=== PATIENT | female | born 2000 | race Caucasian/White ===

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

== ENCOUNTER 2021-08-25 14:41 | Emergency (ER) | payer BC, MEDICAID ==
[2021-08-25 14:51] VITALS: BP 128/80; PULSE 99
[2021-08-25] MEDS ORDERED: Ketorolac 30 MG/ML SDV IM ONE (15:12)
== END 2021-08-25 16:53 | disposition home or self-care (01) ==
LOC: JP.ED 14:41
DX: R10.84 Generalized abdominal pain (principal); F17.210 Nicotine dependence, cigarettes, uncomplicated; Z88.0 Allergy status to penicillin; Z79.899 Other long term (current) drug therapy
CPT/HCPCS: 36415; 80053; 80305; 83690; 85025; 85651; 86140; 96372; 99284; J1885

== ENCOUNTER 2022-01-24 20:03 | Emergency (ER) | payer BC, MEDICAID ==
[2022-01-24 20:58] VITALS: BP 109/62; PULSE 88
[2022-01-24 21:45] LABS: ESTIMATED GFR > 60 (>60)
[2022-01-24] MEDS ORDERED: Famotidine 20 MG Tab PO ONE (22:14)
== END 2022-01-24 23:58 | disposition home or self-care (01) ==
LOC: JP.ED 20:03
DX: O99.891 Other specified diseases and conditions complicating pregnancy (principal); R10.12 Left upper quadrant pain; O99.332 Smoking (tobacco) complicating pregnancy, second trimester; Z3A.19 19 weeks gestation of pregnancy; Z88.0 Allergy status to penicillin
CPT/HCPCS: 36415; 80053; 81001; 85025; 86140; 99283; 99284; A9270-GY

== ENCOUNTER 2022-08-11 19:30 | Emergency (ER) | payer BC, MEDICAID ==
[2022-08-11 20:26] VITALS: BP 118/71; PULSE 85
[2022-08-11] MEDS ORDERED: HYDROmorphone 0.5 MG/0.5 ML Syringe IVPUSH ONE (20:51)
[2022-08-11] MEDS: Sodium Chloride 0.9% 1,000 ML IV SCH ×2 (21:01→22:19)
[2022-08-11] MEDS ORDERED: Ondansetron 4 MG/2 ML SDV IVPUSH ONE (21:11)
[2022-08-11 21:16] LABS: ESTIMATED GFR 72 mL/min (>60)
[2022-08-11] MEDS ORDERED: cefTRIAXone 2 GM in Sodium Chloride 0.9% 50 ML IV ONE (21:23)
[2022-08-11] MEDS ORDERED: Sodium Chloride 0.9% 1,000 ML IV SCH (21:30)
== END 2022-08-11 23:35 | disposition home or self-care (01) ==
LOC: JP.ED 19:30
DX: N12 Tubulo-interstitial nephritis, not specified as acute or chronic (principal); E86.0 Dehydration; K21.9 Gastro-esophageal reflux disease without esophagitis; Z88.0 Allergy status to penicillin; Z79.899 Other long term (current) drug therapy
CPT/HCPCS: 36415; 80053; 83605; 85025; 87040; 96361; 96365; 96375; 99283; J0696; J1170; J2405; J7030

== ENCOUNTER 2023-02-08 10:33 | Emergency (ER) | payer MEDICAID ==
[2023-02-08] MEDS ORDERED: HYDROmorphone 1 MG/ML Syringe IM ONE (12:47)
[2023-02-08] MEDS ORDERED: Cyclobenzaprine 10 MG Tab PO ONE (12:47)
[2023-02-08 15:33] VITALS: BP 109/57; PULSE 65
== END 2023-02-08 15:44 | disposition home or self-care (01) ==
LOC: JP.ED 10:33
DX: S13.9XXA Sprain of joints and ligaments of unspecified parts of neck, initial encounter (principal); K21.9 Gastro-esophageal reflux disease without esophagitis; Z72.0 Tobacco use; Z88.0 Allergy status to penicillin; X50.9XXA Other and unspecified overexertion or strenuous movements or postures, initial encounter
CPT/HCPCS: 72125; 76377; 96372; 99284; A9270; J1170

== ENCOUNTER 2023-03-22 09:26 | Day surgery (SDC) | payer MEDICAID ==
[~2023-03-22 09:26] MED LIST: Midazolam 1 MG/ML 2 ML SDV ONE; Nozin Nasal Sanitizer NASBOTH ONE; Propofol 200 MG/20 ML SDV ONE; fentaNYL 100 MCG/2 ML SDV ONE
[2023-03-22] MEDS ORDERED: Bupivacaine 0.5% 30 ML SDV ONE (09:28)
[2023-03-22 09:54] LABS: MEAN CORPUSCULAR HEMOGLOBIN 32.2 pg (31.6-35.5); RED BLOOD CELL COUNT 4.35 M/uL (3.77-5.24); WHITE BLOOD CELL COUNT,WBC 9.7 K/uL (3.2-11.0)
[2023-03-22] MEDS ORDERED: ceFAZolin 2 GM in Premix Bag 1 BAG IV ONE (10:00)
[2023-03-22 10:19] LABS: A/G RATIO 1.2 (1.2-2.2); ALANINE AMINOTRANSFERASE,ALT 26 U/L (12-78); ALBUMIN 3.7 g/dL (3.4-5.0); ALKALINE PHOSPHATASE 64 U/L (46-116); ASPARTATE AMNIOTRANSFERASE,AST 20 U/L (15-37); BILIRUBIN TOTAL 0.5 mg/dL (0.2-1.0); BLOOD UREA NITROGEN,BUN 11 mg/dL (7-18); CALCIUM 8.7 mg/dL (8.5-10.1); CARBON DIOXIDE,CO2 26 mmol/L (21-32); CHLORIDE,CL 104 mmol/L (100-108); CREATININE 0.7 mg/dL (0.6-1.0); ESTIMATED GFR 124 mL/min (>60); GLUCOSE RANDOM 92 mg/dL (74-106); POTASSIUM,K 4.1 mmol/L (3.6-5.2); PROTEIN TOTAL,TP 6.8 g/dL (6.4-8.2); SODIUM,NA 139 mmol/L (140-148)
[2023-03-22 10:22] LABS: ANION GAP 13.1 mmol/L (5.0-14.0)
[2023-03-22] MEDS ORDERED: Lactated Ringers 1,000 ML IV SCH (10:30)
[2023-03-22] MEDS ORDERED: Propofol 200 MG/20 ML SDV ONE ×3 (11:32→13:10)
[2023-03-22] MEDS ORDERED: fentaNYL 100 MCG/2 ML SDV ONE ×3 (11:34→12:55)
[2023-03-22] MEDS ORDERED: Midazolam 1 MG/ML 2 ML SDV ONE (11:34)
[2023-03-22] MEDS ORDERED: Lactated Ringers 1,000 ML ONE (12:59)
[2023-03-22 15:57] VITALS: BP 111/61; PULSE 86
[2023-03-23] MEDS ORDERED: ceFAZolin 2 GM in Sodium Chloride 0.9% 100 ML IV ONE (10:00)
== END 2023-03-22 15:55 | disposition home or self-care (01) ==
LOC: JP.SDS 09:26
PROVIDERS: ATTEND Specialist
DX: S43.492A Other sprain of left shoulder joint, initial encounter (principal); F41.9 Anxiety disorder, unspecified; J45.909 Unspecified asthma, uncomplicated; K21.9 Gastro-esophageal reflux disease without esophagitis; F90.9 Attention-deficit hyperactivity disorder, unspecified type; F32.A Depression, unspecified; F17.200 Nicotine dependence, unspecified, uncomplicated; Z88.0 Allergy status to penicillin; Z86.69 Personal history of other diseases of the nervous system and sense organs
CPT/HCPCS: 29806; 36415; 80053; 84703; 85027; A9270; C1713; J0690; J2250; J2704; J3010; J3490; J7120

== ENCOUNTER 2023-03-25 10:25 | Emergency (ER) | payer MEDICAID ==
[2023-03-25 11:11] VITALS: BP 112/65; PULSE 81
[2023-03-25] MEDS ORDERED: hydrOXYzine HCl 25 MG Tab PO ONE (11:37)
== END 2023-03-25 12:54 | disposition home or self-care (01) ==
LOC: JP.ED 10:25
DX: L74.3 Miliaria, unspecified (principal); Z88.0 Allergy status to penicillin
CPT/HCPCS: 99282; 99283; A9270

== ENCOUNTER 2023-05-27 21:39 | Emergency (ER) | payer MEDICAID ==
[2023-05-27] MEDS ORDERED: LORazepam 2 MG/ML SDV IM ONE (22:49)
[2023-05-27 23:06] LABS: BASOPHILS ABSOLUTE AUTO 0.13 K/uL (0.00-0.10); BASOPHILS PERCENT AUTO 1.1 % (0.1-1.3); EOSINOPHILS ABSOLUTE AUTO 0.48 K/uL (0.00-0.40); EOSINOPHILS PERCENT AUTO 3.9 % (0.0-5.4); HEMATOCRIT 37.3 % (34.3-46.0); HEMOGLOBIN 13.3 g/dL (11.2-15.5); IMMATURE GRAN ABSOLUTE AUTO 0.03 K/uL (0.00-0.23); IMMATURE GRAN PERCENT AUTO 0.2 % (0.0-0.7); LYMPHOCYTES PERCENT AUTO 38.4 % (11.4-47.7); MEAN CORPUSCULAR HEMOGLOBIN 32.3 pg (31.6-35.5); MEAN CORPUSCULAR HGB CONC 35.7 g/dL (31.6-35.5); MEAN CORPUSCULAR VOLUME 90.5 fL (81.4-99.0); MONOCYTES ABSOLUTE AUTO 1.26 K/uL (0.20-0.90); MONOCYTES PERCENT AUTO 10.3 % (3.3-12.6); NEUTROPHILS ABSOLUTE AUTO 5.64 K/uL (1.0-7.6); NEUTROPHILS PERCENT AUTO 46.1 % (40.0-78.1); PLATELET COUNT,PLT 276 K/uL (130-375); RED BLOOD CELL COUNT 4.12 M/uL (3.77-5.24); WHITE BLOOD CELL COUNT,WBC 12.2 K/uL (3.2-11.0)
[2023-05-27 23:18] LABS: CREATININE 0.9 mg/dL (0.6-1.0); EST CRCL DRUG DOSING (CG) 93.73 mL/min; POTASSIUM,K 3.5 mmol/L (3.6-5.2)
[2023-05-27 23:19] LABS: ANION GAP 12.5 mmol/L (5.0-14.0)
[2023-05-27 23:45] LABS: CORONAVIRUS COVID-19 NAA NEGATIVE (NEGATIVE); INFLUENZA A NAA NEGATIVE (NEGATIVE); INFLUENZA B NAA NEGATIVE (NEGATIVE); RESPIRATORY SYNCYTIAL VIR NAA NEGATIVE (NEGATIVE)
[2023-05-28 00:22] LABS: APPEARANCE,URINE SLIGHTLY CLOUDY (CLEAR); BILIRUBIN,URINE NEGATIVE (NEGATIVE); COLOR,URINE YELLOW (YELLOW); GLUCOSE,URINE NEGATIVE (NEGATIVE); KETONES,URINE NEGATIVE (NEGATIVE); LEUKOCYTE ESTERASE,URINE NEGATIVE (NEGATIVE); NITRITE,URINE NEGATIVE (NEGATIVE); OCCULT BLOOD,URINE NEGATIVE (NEGATIVE); PH,URINE 7.5 (5.0-8.0); PROTEIN,URINE NEGATIVE (NEGATIVE); UROBILINOGEN,URINE 0.2 EU/dL (0.2-1.0)
[2023-05-28 00:38] LABS: AMPHETAMINES SCREEN, URINE NEGATIVE (NEGATIVE); BARBITURATE SCREEN,URINE NEGATIVE (NEGATIVE); BENZODIAZEPINES SCREEN,URINE NEGATIVE (NEGATIVE); METHADONE SCREEN, URINE NEGATIVE (NEGATIVE); METHAMPHETAMINES SCREEN, URINE NEGATIVE (NEGATIVE); OXYCODONE SCREEN,URINE NEGATIVE (NEGATIVE); PROPOXYPHENE SCREEN,URINE NEGATIVE (NEGATIVE); THC SCREEN,URINE 50 NG/ML NEGATIVE (NEGATIVE)
[2023-05-28 00:39] LABS: AMORPHOUS SEDIMENT,URINE MANY; BACTERIA,URINE MANY; EPITHELIAL CELLS,URINE RARE; MUCUS,URINE NOT SEEN; RBC,URINE 0-5 (0-5); WBC,URINE 0-5 (0-5)
[2023-05-28] MEDS ORDERED: LORazepam 1 MG Tab PO ONE (00:48)
[2023-05-28 01:12] VITALS: BP 137/76; PULSE 63
== END 2023-05-28 00:58 | disposition home or self-care (01) ==
LOC: JP.ED 21:39
DX: R07.89 Other chest pain (principal); R06.02 Shortness of breath; K21.9 Gastro-esophageal reflux disease without esophagitis; Z20.822 Contact with and (suspected) exposure to COVID-19; Z88.0 Allergy status to penicillin
CPT/HCPCS: 0241U; 36415; 71046; 80048; 80305; 81001; 85025; 96372; 99285; A9270; J2060

== ENCOUNTER 2023-09-15 03:55 | Emergency (ER) | payer BC, MEDICAID ==
[2023-09-15 04:14] LABS: BASOPHILS ABSOLUTE AUTO 0.09 K/uL (0.00-0.10); EOSINOPHILS ABSOLUTE AUTO 0.26 K/uL (0.00-0.40); EOSINOPHILS PERCENT AUTO 2.8 % (0.0-5.4); HEMATOCRIT 40.3 % (34.3-46.0); HEMOGLOBIN 13.9 g/dL (11.2-15.5); IMMATURE GRAN ABSOLUTE AUTO 0.03 K/uL (0.00-0.23); IMMATURE GRAN PERCENT AUTO 0.3 % (0.0-0.7); LYMPHOCYTES PERCENT AUTO 35.5 % (11.4-47.7); MEAN CORPUSCULAR HEMOGLOBIN 31.6 pg (31.6-35.5); MEAN CORPUSCULAR HGB CONC 34.5 g/dL (31.6-35.5); MEAN CORPUSCULAR VOLUME 91.6 fL (81.4-99.0); MONOCYTES ABSOLUTE AUTO 0.98 K/uL (0.20-0.90); MONOCYTES PERCENT AUTO 10.5 % (3.3-12.6); NEUTROPHILS ABSOLUTE AUTO 4.64 K/uL (1.0-7.6); NEUTROPHILS PERCENT AUTO 49.9 % (40.0-78.1); PLATELET COUNT,PLT 257 K/uL (130-375); WHITE BLOOD CELL COUNT,WBC 9.3 K/uL (3.2-11.0)
[2023-09-15 04:39] LABS: A/G RATIO 1.4 (1.2-2.2); ALANINE AMINOTRANSFERASE,ALT 24 U/L (12-78); ALBUMIN 3.8 g/dL (3.4-5.0); ALKALINE PHOSPHATASE 53 U/L (46-116); ANION GAP 18.5 mmol/L (5.0-14.0); ASPARTATE AMNIOTRANSFERASE,AST 15 U/L (15-37); BILIRUBIN TOTAL 0.4 mg/dL (0.2-1.0); BLOOD UREA NITROGEN,BUN 19 mg/dL (7-18); CALCIUM 8.1 mg/dL (8.5-10.1); CARBON DIOXIDE,CO2 22 mmol/L (21-32); CHLORIDE,CL 105 mmol/L (100-108); EST CRCL DRUG DOSING (CG) 90.66 mL/min; ESTIMATED GFR 81 mL/min (>60); GLUCOSE RANDOM 87 mg/dL (74-106); POTASSIUM,K 3.5 mmol/L (3.6-5.2); PROTEIN TOTAL,TP 6.5 g/dL (6.4-8.2); SODIUM,NA 142 mmol/L (140-148)
[2023-09-15] MEDS ORDERED: levETIRAcetam in NaCl (iso-os) 1,000 MG in Premix Bag 1 BAG IV ONE (04:47)
[2023-09-15] MEDS: Sodium Chloride 0.9% 1,000 ML IV ONE (04:55)
[2023-09-15] MEDS: levETIRAcetam 250 MG Tab PO ONE (07:47)
[2023-09-15] MEDS ORDERED: levETIRAcetam 500 MG/5 ML Solution ML 473 ml Bottle PO SCH (09:00)
[2023-09-15 12:23] LABS: AMPHETAMINES SCREEN, URINE PRESUMPTIVE POSITIVE (NEGATIVE); BARBITURATE SCREEN,URINE NEGATIVE (NEGATIVE); BENZODIAZEPINES SCREEN,URINE NEGATIVE (NEGATIVE); METHADONE SCREEN, URINE NEGATIVE (NEGATIVE); METHAMPHETAMINES SCREEN, URINE NEGATIVE (NEGATIVE); OXYCODONE SCREEN,URINE NEGATIVE (NEGATIVE); PROPOXYPHENE SCREEN,URINE NEGATIVE (NEGATIVE); THC SCREEN,URINE 50 NG/ML NEGATIVE (NEGATIVE)
[2023-09-15] MEDS: Acetaminophen 325 MG Tab PO ONE (17:03)
[2023-09-15] MEDS: Ketorolac 15 MG/ML SDV IVPUSH ONE (18:29)
[2023-09-15] MEDS: LORazepam 2 MG/ML SDV IVPUSH ONE (18:30)
[2023-09-15] MEDS: levETIRAcetam 250 MG Tab PO STA (20:22)
[2023-09-15] MEDS: levETIRAcetam 250 MG Tab ONE (20:28)
[2023-09-15] MEDS ORDERED: levETIRAcetam 250 MG Tab PO SCH (21:00)
[2023-09-16 03:16] VITALS: BP 104/59; PULSE 64
== END 2023-09-16 07:43 | disposition home or self-care (01) ==
LOC: JP.ED 03:55
DX: G40.409 Other generalized epilepsy and epileptic syndromes, not intractable, without status epilepticus (principal); Z88.0 Allergy status to penicillin; Z79.899 Other long term (current) drug therapy
CPT/HCPCS: 36415; 70450; 80053; 80305-QW; 80307; 85025; 86140; 96361; 96374; 96375; 99284; 99285-25; A9270-GY; J1885; J2060; J7030

== ENCOUNTER 2024-11-17 07:43 | Emergency (ER) | payer MEDICAID ==
[2024-11-17] MEDS ORDERED: levETIRAcetam in NaCl (iso-os) 1,500 MG in Premix Bag 100 BAG IV ONE (07:54)
[2024-11-17 07:59] LABS: BASOPHILS ABSOLUTE AUTO 0.08 K/uL (0.00-0.10); BASOPHILS PERCENT AUTO 1.1 % (0.1-1.3); EOSINOPHILS ABSOLUTE AUTO 0.29 K/uL (0.00-0.40); HEMATOCRIT 39.8 % (34.3-46.0); HEMOGLOBIN 13.9 g/dL (11.2-15.5); IMMATURE GRAN ABSOLUTE AUTO 0.03 K/uL (0.00-0.23); IMMATURE GRAN PERCENT AUTO 0.4 % (0.0-0.7); LYMPHOCYTES ABSOLUTE AUTO 2.25 K/uL (0.8-3.3); LYMPHOCYTES PERCENT AUTO 30.7 % (11.4-47.7); MEAN CORPUSCULAR HEMOGLOBIN 33.1 pg (31.6-35.5); MEAN CORPUSCULAR HGB CONC 34.9 g/dL (31.6-35.5); MEAN CORPUSCULAR VOLUME 94.8 fL (81.4-99.0); MONOCYTES ABSOLUTE AUTO 0.72 K/uL (0.20-0.90); MONOCYTES PERCENT AUTO 9.8 % (3.3-12.6); NEUTROPHILS ABSOLUTE AUTO 3.96 K/uL (1.0-7.6); PLATELET COUNT,PLT 231 K/uL (130-375); WHITE BLOOD CELL COUNT,WBC 7.3 K/uL (3.2-11.0)
[2024-11-17] MEDS: Sodium Chloride 0.9% 1,000 ML IV ONE ×2 (08:06→09:15)
[2024-11-17] MEDS: levETIRAcetam in NaCl (iso-os) 1,500 MG in Premix Bag 1 BAG IV ONE (08:07)
[2024-11-17 08:15] VITALS: BP 95/74; PULSE 122
[2024-11-17 08:22] LABS: A/G RATIO 1.3 (1.2-2.2); ALANINE AMINOTRANSFERASE,ALT 20 U/L (12-78); ALBUMIN 3.7 g/dL (3.4-5.0); ALKALINE PHOSPHATASE 55 U/L (46-116); ASPARTATE AMNIOTRANSFERASE,AST 14 U/L (15-37); BILIRUBIN TOTAL 0.4 mg/dL (0.2-1.0); BLOOD UREA NITROGEN,BUN 16 mg/dL (7-18); CALCIUM 8.8 mg/dL (8.5-10.1); CARBON DIOXIDE,CO2 20 mmol/L (21-32); CHLORIDE,CL 107 mmol/L (100-108); CREATININE 0.9 mg/dL (0.6-1.0); EST CRCL DRUG DOSING (CG) 92.92 mL/min; ESTIMATED GFR 91 mL/min (>60); GLUCOSE RANDOM 121 mg/dL (74-106); POTASSIUM,K 3.7 mmol/L (3.6-5.2); PROTEIN TOTAL,TP 6.6 g/dL (6.4-8.2); SODIUM,NA 143 mmol/L (140-148)
[2024-11-17 08:23] LABS: ANION GAP 19.7 mmol/L (5.0-14.0)
[2024-11-17 08:29] LABS: APPEARANCE,URINE SLIGHTLY CLOUDY (CLEAR); BILIRUBIN,URINE NEGATIVE (NEGATIVE); COLOR,URINE YELLOW (YELLOW); GLUCOSE,URINE NEGATIVE (NEGATIVE); KETONES,URINE NEGATIVE (NEGATIVE); LEUKOCYTE ESTERASE,URINE NEGATIVE (NEGATIVE); NITRITE,URINE NEGATIVE (NEGATIVE); OCCULT BLOOD,URINE TRACE-INTACT (NEGATIVE); PH,URINE 5.5 (5.0-8.0); PROTEIN,URINE 30 mg/dL (NEGATIVE); UROBILINOGEN,URINE 0.2 EU/dL (0.2-1.0)
[2024-11-17 08:33] LABS: AMPHETAMINES SCREEN, URINE NEGATIVE (NEGATIVE); BACTERIA,URINE MANY; BARBITURATE SCREEN,URINE NEGATIVE (NEGATIVE); BENZODIAZEPINES SCREEN,URINE NEGATIVE (NEGATIVE); EPITHELIAL CELLS,URINE MODERATE; METHADONE SCREEN, URINE NEGATIVE (NEGATIVE); METHAMPHETAMINES SCREEN, URINE NEGATIVE (NEGATIVE); OXYCODONE SCREEN,URINE NEGATIVE (NEGATIVE); PROPOXYPHENE SCREEN,URINE NEGATIVE (NEGATIVE); RBC,URINE 0-5 (0-5); THC SCREEN,URINE 50 NG/ML NEGATIVE (NEGATIVE)
[2024-11-17 08:34] LABS: AMORPHOUS SEDIMENT,URINE NOT SEEN; MUCUS,URINE FEW
[2024-11-17] MEDS ORDERED: Levalbuterol HCl 1.25 MG/3 ML Neb NEB ONE (11:20)
== END 2024-11-17 12:54 | disposition home or self-care (01) ==
LOC: JP.ED 07:43
DX: R56.9 Unspecified convulsions (principal); F17.200 Nicotine dependence, unspecified, uncomplicated; Z88.0 Allergy status to penicillin; Z79.899 Other long term (current) drug therapy
CPT/HCPCS: 36415; 70450; 80053; 80305-QW; 80307; 81001; 82550; 83605; 84703; 85025; 93005; 93010; 96361; 96374; 99284; 99285-25; J1953; J7030

== ENCOUNTER 2025-03-18 13:53 | Emergency (ER) | payer MEDICAID ==
[2025-03-18 14:09] VITALS: BP 111/62; PULSE 77
== END 2025-03-18 15:51 | disposition home or self-care (01) ==
LOC: JP.ED 13:53
DX: T63.441A Toxic effect of venom of bees, accidental (unintentional), initial encounter (principal); F17.200 Nicotine dependence, unspecified, uncomplicated; J45.909 Unspecified asthma, uncomplicated; Z88.0 Allergy status to penicillin; Z79.899 Other long term (current) drug therapy
CPT/HCPCS: 99282; A9270